=== PATIENT | male | born 1995 | race Caucasian/White ===

== ENCOUNTER → 2016-11-29 | Outpatient (CLI) | payer BC ==
--- NOTE | ~2016-11-29 | US85 ---
[facility]. [facility] A Service of [facility] & [facility] RADIOLOGY TEXT RESULTS PATIENT: ZAYDA GODOY LOCATION: SNIV : [birth year] UNIT #: [id number] AGE: [address]: Vikas Gipson SEX: M ORDER DR: [id number] [place] [id number] O MR#: [id number] Acc #: [id number] NAME: ZAYDA GODOY : 1995 SEX: M STUDY DATE/TIME: 11/29/2016 14:42 UNIT: SNIV ROOM: STUDY DESCRIPTION: [facility] [place] Veins Unilat or Ltd Stdy Attending Physician: Vikas Gipson M.D. Referring Physician: Vikas Gipson M.D. Ordering Physician: Vikas Gipson M.D. Primary Care Physician: No Primary Care Physician MEDICAL IMAGING REPORT This report is preliminary unless electronic signature is present. EXAM Unilateral right lower extremity venous Doppler, 11/29/2016. HISTORY Right leg edema for 3 days. TECHNIQUE Venous ultrasound examination of the right lower extremity was performed using grayscale, spectral Doppler and color flow Doppler imaging. FINDINGS The examination is negative. There is no evidence of right lower extremity deep venous thrombus from the groin to the lower calf. Visualized greater saphenous vein is also patent. IMPRESSION Negative examination. No evidence of right lower extremity deep venous thrombosis. Dictated by... Gallito Chicas M.D. THIS IS AN ELECTRONICALLY VERIFIED REPORT Gallito Chicas M.D. at 12/01/2016 2:18 PM VERONICA/dashawn TD: 11/29/2016 18:01 JOB #: [id number] MEDICAL IMAGING REPORT Page 1 of 1
== END | disposition home or self-care (01) ==
LOC: SNIV 14:24
DX: R60.0 Localized edema (principal)
CPT/HCPCS: 93971